=== PATIENT | male | born 2000 | race Hispanic/Latino ===

== ENCOUNTER 2022-06-27 09:51 | Outpatient (CLI) | payer BC | END 2022-06-27 09:52 | disposition home or self-care (01) | LOC: RAD 09:51 | PROVIDERS: ATTEND Chiropractor | DX: M99.02 Segmental and somatic dysfunction of thoracic region (principal); M41.34 Thoracogenic scoliosis, thoracic region; M99.01 Segmental and somatic dysfunction of cervical region; M62.830 Muscle spasm of back | CPT/HCPCS: 72072 ==